=== PATIENT | female | born 1995 | race Caucasian/White ===

== ENCOUNTER 2023-01-06 21:18 | Emergency (ER) | payer OTHER ==
[2023-01-06 21:54] LABS: Bilirubin Negative (Negative); Blood, Urine Trace (Negative); Clarity Clear (Clear); Glucose, Urine (Dipstick) Negative (Negative); Ketone, Urine Negative (Negative); Leukocyte Negative (Negative); Nitrite Negative (Negative); Protein, Urine (Dipstick) Negative (Neg-Trace); Specific Gravity, Urine 1.015 (1.005-1.030); Urobilinogen 0.2 mg/dL (Less than 2); pH, Urine 7.5 (5.0-9.0)
[2023-01-06 21:55] LABS: Bacteria/HPF None Seen HPF (None Seen); RBC/HPF 0-3 HPF (0-3); Squamous Epithelial 0-3 HPF (0-3); WBC/HPF None Seen HPF (0-3)
== END 2023-01-06 22:24 | disposition home or self-care (01) ==
LOC: NAV ERS 21:18
DX: M79.10 Myalgia, unspecified site (principal)
CPT/HCPCS: 81003; 81015; 99283